=== PATIENT | male | born 1955 ===

== ENCOUNTER 2016-11-26 10:17 | Day surgery (SDC) | payer OTHER ==
[2016-11-23 14:20] VITALS: BMI 25.2
[2016-11-26 11:19] VITALS: RESP 18
[2016-11-26 11:32] LABS: INR 0.99 (0.93-1.08); PARTIAL THROMBOPLASTIN TIME 26.8 Seconds (23.7-30.8)
[2016-11-26] MEDS ORDERED: Lidocaine 2% Inj (20ml) ONE (13:33)
[2016-11-26] MEDS ORDERED: Midazolam 2 MG/2 ML VIAL ONE ×2 (13:34→13:42)
[2016-11-26] MEDS ORDERED: Nitroglycerin 50mg in D5W 50 MG/250 ML BOTTLE IV ONE (13:43)
--- NOTE | 2016-11-26 14:54 | CARD ---
APPROVED REPORT EKG Measurement Heart [id number] <Conclusion> Normal sinus rhythm Nonspecific T wave abnormality Lt. Ant.Jean Pierre-Block.
[2016-11-26 15:21] VITALS: TEMP 97.6; O2SAT 98
[2016-11-26] MEDS ORDERED: Bacitracin 500 Units/gm Oint Foilpak UD TOP ONE (16:25)
[2016-11-26] MEDS ORDERED: Bacitracin 500 Units/gm Oint Foilpak UD ONE (18:02)
[2016-11-26 18:18] VITALS: BP 114/69; PULSE 52
--- NOTE | 2016-11-27 09:05 | CARDCATH ---
PROCEDURE DATE: 11/26/2016 INDICATIONS: The patient is a 61-year-old male with history of hypertension, HIV, hepatitis C, dyslipidemia, diabetes mellitus, referred to me for evaluation of new-onset CHF, ejection fraction of 45%, and episodes of chest pain described as pressure typical in nature radiating to the arm and left neck area. PROCEDURE PERFORMED: Left heart catheterization with selective left and right coronary angiogram via right radial approach, 6-Kazakh right radial arterial access, left ventriculogram, wristband for hemostasis. TECHNIQUE OF PROCEDURE: After obtaining informed consent, the patient was brought to the cardiac cath suite in postabsorptive, non-sedated state. The patient was prepped and draped in the usual sterile fashion. A 2% lidocaine was used for infiltration anesthesia. Using modified Seldinger technique, a 6-Kazakh sheath was introduced into the right radial artery. Subsequently, over a J-wire, JL4 And JR4 diagnostic catheter was used to engage the left and right coronary systems and angiograms were obtained in different orthogonal views. Subsequently, J-wire, pigtail catheter was across the aortic valve and LV gram was obtained in the MCCOLLUM view. HEMODYNAMIC FINDINGS: Left ventricular end-diastolic pressure was 20 mmHg. There was no gradient noted upon the aortic valve pullback. There was no AI, no MR. Left ventricular ejection fraction estimated to be 40% to 45% with mild global hypokinesis. CORONARY ANATOMY: Left main is the large-sized vessel bifurcates into left anterior descending and left circumflex coronary artery. Left circumflex coronary artery large size vessel that gives out for large OM1 branch and ramus intermedius has a proximal 65% stenosis, small size vessel. Left anterior descending large size vessel has a 55% stenosis at the first septal fusing line inspector , which has ostial 65% stenosis. LAD gives off medium-sized diagonal branch and continues with diffuse 55% stenosis giving all the septal perforators. TECHNIQUES OF INTERVENTION: After reviewing the above angiographic findings, it was deemed imperative to further interrogate the prox and mild LAD diffuse lesion. FFR wire was used to cross and patch the proximal and mid lesions. The FFR of the LAD was 0.81, which was physiologically nonsignificant. IMPRESSION: Moderate diffuse left anterior descending artery disease with physiologically nonsignificant FFR. RECOMMENDATIONS: Aggressive medical management and risk factor modification, keep the patient on aspirin, statins, beta-jory, nitrates and NICHOL inhibitor. The patient is to be followed clinically for signs of ischemia and re-evaluate her with noninvasive evaluation for diffuse LAD disease. Jose Cohn MD
== END 2016-11-26 19:30 | disposition home or self-care (01) ==
LOC: CATH 10:17
PROVIDERS: ATTEND Internal Medicine Interventional Cardiology
DX: I25.10 Atherosclerotic heart disease of native coronary artery without angina pectoris (principal); I11.0 Hypertensive heart disease with heart failure; I50.22 Chronic systolic (congestive) heart failure; E11.9 Type 2 diabetes mellitus without complications; Z21 Asymptomatic human immunodeficiency virus [HIV] infection status; B19.20 Unspecified viral hepatitis C without hepatic coma; E78.5 Hyperlipidemia, unspecified
CPT/HCPCS: 36415; 85175; 85610; 85730; 86850; 86900; 93005; 93458; 93571; 99152; 99153; C1769 ×3; C1887; J1644 ×2; J2250; J3010; J7040; Q9967

== ENCOUNTER 2017-01-30 12:53 | Day surgery (SDC) | payer OTHER ==
[2017-01-26 17:50] VITALS: BMI 25.2
[2017-01-30] MEDS ORDERED: Lidocaine 2% Inj (20ml) ONE (13:18)
[2017-01-30] MEDS ORDERED: Phenylephrine 10 mg/ml Inj ONE (13:18)
[2017-01-30] MEDS ORDERED: HEPARIN SODIUM/NS 1,000 ML IV ONE (13:18)
[2017-01-30] MEDS ORDERED: Midazolam 2 MG/2 ML VIAL ONE (14:15)
[2017-01-30] MEDS ORDERED: Iohexol 350mgl/ml 50 ML ONE (14:16)
[2017-01-30] MEDS ORDERED: Adenosine 90 mg/30mL IV ONE (14:21)
[2017-01-30] MEDS ORDERED: Nitroglycerin 50mg in D5W 50 MG/250 ML BOTTLE IV ONE (14:33)
[2017-01-30] MEDS ORDERED: Iohexol 350 MG/100 ML VIAL ONE (14:44)
[2017-01-30 16:11] VITALS: TEMP 98.2
[2017-01-30] MEDS ORDERED: Sodium Chloride 0.9% 1,000 ML IV SCH (16:15)
[2017-01-30] MEDS ORDERED: Promethazine/Cod 6.25mg-10mg/5ml Syr UD PO STA (20:28)
[2017-01-30 22:07] VITALS: BP 146/86; RESP 20
[2017-01-30 22:11] VITALS: PULSE 82
--- NOTE | 2017-01-31 02:07 | CARDCATH ---
PROCEDURE DATE: 01/30/2017 INDICATION: Mr. Elvis Up is a 61-year-old male with past medical history significant for his known history of moderate mid LAD lesion, status post cardiac catheterization in 11/2016, who was being managed medically, who presented to [facility] with complaints of chest pain on exertion. He was ruled out for acute coronary syndrome and subsequently underwent a stress test, which showed mild anterior wall ischemia. Plan was initially to discharge the patient on maximum medical therapy, but he continued to have recurrent episodes of chest pain while in the hospital and therefore was transferred to [facility] for further evaluation and treatment. PROCEDURE PERFORMED: Left heart catheterization with selective left and right coronary angiogram via right femoral approach. FFR of mid LAD physiologically significant at 0.73. PTCA stenting of mid LAD with deployment of 2.75 x 30 mm Resolute drug-eluting stent. Lesion reduction from 70% down to 0% LJ 3 flow. Mynx closure device for hemostasis. TECHNIQUES FOR PROCEDURE: After obtaining informed consent, the patient was brought to the cardiac cath suite in post-absorptive non-sedated state. The patient was prepped and draped in the usual sterile fashion. Lidocaine 2% was used for infiltration of anesthesia. Using modified Seldinger technique, 6-Maltese sheath was introduced into right femoral artery and angiogram was performed. Subsequently over a J-wire, a JL4 and JR4 diagnostic catheters were used to engage the left and right coronary systems. Angiograms were obtained in different orthogonal views subsequently. CORONARY ANATOMY: Left main large size vessel bifurcates into left anterior descending artery and left circumflex coronary artery, left circumflex moderate to medium sized runs in the AV groove and gives off obtuse marginal branch, has moderate mid 30% stenosis. LAD after the septal president & founder has a mid 40-55% stenosis and gives off a diagonal branch past the diagonal has a long moderate diffuse 70% stenosis. RCA large sized vessel in the mid section has a 40% stenosis and right dominant circulation. TECHNIQUES OF INTERVENTION: After reviewing the above angiographic findings, the mid LAD lesion was further interrogated with FFR wire. FFR is physiologically significant at 0.75. At this point, the lesion was predilated with a 2-0 balloon and subsequently stented with a 2.75 x 30 mm Resolute drug-eluting stent. Lesion reduction now down to 0% and LJ 3 flow. Subsequently, left ventriculogram was obtained, which were normal EF with EDP of 7. IMPRESSION: Successful percutaneous transluminal coronary angioplasty stenting of mid left anterior descending with deployment of 2.75 x 30 mm Resolute drug-eluting stent. FFR is significant at 0.73. RECOMMENDATIONS: Continue aggressive medical management and risk factor modification, keep the patient on antiplatelet therapy for one year, aspirin, Plavix, statins, beta-jory, nitrates, and NICHOL inhibitor. The patient is to be discharged in 3 hours and follow up as an outpatient in 1-2 weeks. Jose Cohn MD
== END 2017-01-30 23:18 | disposition short-term general hospital (02) ==
LOC: CATH 12:53 → 2RSO 15:42 → CATH 23:18
PROVIDERS: ATTEND Internal Medicine Interventional Cardiology
DX: I25.10 Atherosclerotic heart disease of native coronary artery without angina pectoris (principal)
CPT/HCPCS: 85175; 93458; 93571; 99152; 99153; C1725; C1760; C1769 ×2; C1874; C1887; C2629; C9600; J0153; J1644 ×3; J2250; J3010; J7040 ×2; Q9967 ×3

== ENCOUNTER 2018-01-24 07:37 | Day surgery (SDC) | payer OTHER ==
[2018-01-19 19:18] VITALS: BMI 25.2
[2018-01-24] MEDS ORDERED: Lidocaine 2% Inj (20ml) ONE (09:46)
[2018-01-24] MEDS ORDERED: Iodixanol 320 MG/ML 100 ML BOTTLE IV ONE (09:47)
[2018-01-24] MEDS ORDERED: Iohexol 350mgl/ml 50 ML ONE (09:47)
[2018-01-24] MEDS ORDERED: Iodixanol 320 MG/ML 200 ML BOTTLE IV ONE (09:47)
[2018-01-24] MEDS ORDERED: Phenylephrine 10 mg/ml Inj ONE (09:48)
[2018-01-24] MEDS ORDERED: Nitroglycerin 50mg in D5W 50 MG/250 ML BOTTLE IV ONE (09:48)
[2018-01-24] MEDS ORDERED: Adenosine 90 mg/30mL IV ONE (09:49)
[2018-01-24] MEDS ORDERED: Midazolam 2 MG/2 ML VIAL ONE ×2 (09:54→10:18)
[2018-01-24 12:13] VITALS: RESP 18; TEMP 98.3
[2018-01-24 16:21] VITALS: BP 124/78; PULSE 91
--- NOTE | 2018-01-24 18:53 | CARDCATH ---
PROCEDURE DATE: 01/24/2018 INDICATION: Mr. Up is a 62-year-old male with history of coronary artery disease status post stenting of mid LAD, who was admitted to [facility] with worsening shortness of breath and diagnosed with new-onset CHF. He had prior catheterization in [facility], which showed moderate LAD stenosis, and therefore, was brought to the clinical lab specialist for further evaluation and treatment of his heart failure, which was new in onset. PROCEDURES PERFORMED: 1. Left heart catheterization with selective left and right coronary angiogram via right femoral approach. 2. Right heart catheterization with hemodynamics and saturations via right femoral venous access. TECHNICAL PROCEDURE: After obtaining informed consent, the patient was brought to the cardiac cath suite in post-absorptive and non-sedated state. The patient was prepped and draped in the usual sterile fashion. A 2% lidocaine was used for infiltration of anesthesia. Using modified Seldinger technique, a 6-Belizean sheath was introduced into the right femoral artery and 7-Belizean sheath was introduced into the right femoral vein subsequently under fluoroscopic guidance. Pulmonary capillary wedge catheter was advanced through the IVC into the RA, RV, PA, and wedge position. Hemodynamics and saturations were obtained. FINDINGS: RIGHT HEART CATHETERIZATION FINDINGS: RA mean pressures were 7 mmHg, RV pressures 30 with EDP of 8, PA pressures 40/20 with a mean of 25, pulmonary capillary wedge pressure was 16. Using thermodilution method, cardiac output was calculated to be 5.2 liters per minute. ANGIOGRAPHIC FINDINGS: Left main is a large-sized vessel, bifurcates into LAD and circumflex. LAD is a large-sized vessel, has a proximal 30% stenosis. Mid segment has a patent stent. Distal LAD becomes diffusely diseased, gives off two small diagonal branches. Left circumflex runs in the AV groove because of large obtuse marginal branch, which further bifurcates into superior and inferior branches. RCA is a large-sized vessel, has proximal 40% stenosis, gives off right PDA and PLV branches, free of any obstructive disease. The left ventricular ejection fraction is 30-40%. IMPRESSION: 1. Fractional flow reserve of the left anterior descending was done, distal left anterior descending has vasospasm with falsely positive fractional flow reserve, but mid left anterior descending fractional flow reserve was physiologically nonsignificant at 0.85. 2. Moderate left anterior descending disease, distal left anterior descending diffusely diseased with vasospasm. Patent stent in the mid left anterior descending. 3. Cardiomyopathy with mild left ventricular systolic dysfunction. RECOMMENDATIONS: 1. Guideline-directed therapy for CAD . 2. The patient can be transferred back to [facility] in [address] Francisco Marion for letting me to participate in the care of the patient. Jose Cohn MD cc: Francisco Marion MD
== END 2018-01-24 16:31 ==
LOC: CATH 07:37 → 2RSO 11:44 → CATH 16:31
PROVIDERS: ATTEND Internal Medicine Interventional Cardiology
DX: I25.111 Atherosclerotic heart disease of native coronary artery with angina pectoris with documented spasm (principal); I50.9 Heart failure, unspecified; I42.9 Cardiomyopathy, unspecified; Z95.5 Presence of coronary angioplasty implant and graft
CPT/HCPCS: 93460; 93571; 99152; 99153; C1760; C1769 ×2; C1887; C1894 ×2; J0153; J1644; J2250; J3010; Q9966; Q9967